=== PATIENT | female | born 1995 | race Caucasian/White ===

== ENCOUNTER 2017-02-11 20:05 | Emergency (ER) | payer OTHER ==
[~2017-02-11] VITALS: Ht 165.1 cm; Wt 68.8 kg
[~2017-02-11 20:05] MED LIST: CEPH500C PO; IBUP800T25 PO; NITR-58 PO; NO CURRENT MEDS; PHEN-538 PO
[2017-02-11 20:11] VITALS: Ht 165.1 cm; Wt 68.8 kg
--- NOTE | 2017-02-11 20:38 | ERD ---
ER Documentation Chief Complaint Chief Complaint Burning on urination x 6 days HPI The patient is a 21-year-old female who presents to the Emergency Department with complaint of dysuria. The patient reports that her symptoms initially began on Sunday, 6 days ago, at which time she developed a mild burning pain upon urination. She took [id number] Azo, and her symptoms improved. However, over the past 1-2 days, she notes that her symptoms have worsened. She reports associated symptoms of urinary frequency, urgency, and hematuria. Otherwise, Denies fevers, sweats, chills, nausea, vomiting, abdominal pain, back pain, flank pain. Denies any other complaints at this time. Last menstrual period was 2 weeks ago, and normal. She denies any new sexual contacts. Denies any vaginal bleeding or new vaginal discharge. Denies STI exposure. ROS All systems reviewed and are negative except as per history of present illness. Medications Home Meds Active Scripts Phenazopyridine Hcl* (Pyridium*) 200 Mg Tab, 200 MG PO TID Y for URINARY PAIN for 2 Days, #6 TAB Prov:EULOGIO MEYER PA-C 02/11/17 Cephalexin* (Cephalexin*) 500 Mg Capsule, 500 MG PO Q6 for 7 Days, CAP Prov:KORINA HUMMEL MD 05/15/15 Phenazopyridine Hcl* (Pyridium*) 200 Mg Tab, 200 MG PO TID Y for DYSURIA, #6 TAB Prov:MAMADOU BOYD. [employer] CONSULTANT 10/02/14 Nitrofurantoin Monohyd Macrocr* (Macrobid*) 100 Mg Capsr, 100 MG PO BID for 7 Days, CAP Prov:MAMADOU BOYD [employer] CONSULTANT 10/02/14 Ibuprofen* (Motrin*) 800 Mg Tab, 800 MG PO Q6H Y for PAIN AND OR ELEVATED TEMP, #30 TAB Prov:TAYLA LOPEZ PA-C 09/03/14 Reported Medications [No Current Meds] No Conflict Check 05/26/09 Allergies Allergies: Coded Allergies: No Known Allergy (Verified Allergy, Mild, 05/26/09) PMhx/Soc Medical and Surgical Hx: pt denies Medical Hx, pt denies Surgical Hx History of Surgery: No Anesthesia Reaction: No Hx Neurological Disorder: No Hx Respiratory Disorders: No Hx Cardiac Disorders: No Hx Psychiatric Problems: No Hx Miscellaneous Medical Probl: Yes (UTI) Hx Alcohol Use: Yes (2-3 COCKTAILS ONCE A MONTH) Hx Substance Use: No Hx Tobacco Use: No Physical Exam Vitals Vital Signs Date Time Temp Pulse Resp B/P Pulse Ox O2 Delivery O2 Flow Rate FiO2 02/11/17 20:11 99.0 72 20 109/63 98 Physical Exam GENERAL: Well-developed, well-nourished, in no acute distress. HEENT: Head is normocephalic, atraumatic. No scleral pallor or icterus. Pupils equal, round and reactive to light. Extraocular movements intact. Conjunctiva pink. Moist mucous membranes. NECK: Supple. Full range of motion. RESPIRATORY: Lungs are clear to auscultation bilaterally. Equal breath sounds. Normal expiratory effort. CARDIOVASCULAR: Regular rate and rhythm. S1 and S2 normal. GASTROINTESTINAL: Abdomen is soft, nontender, and nondistended. No guarding, no rebound tenderness. Normal bowel sounds. FLANK: No CVA tenderness, no mass or swelling. BACK: No midline tenderness. GENITOURINARY: Normal external genitalia. No abnormal discharge, no bleeding. No wounds or lesions. EXTREMITIES: No clubbing, cyanosis, or edema. Normal skin perfusion. Moving all extremities. Muscle tone is normal. No focal swelling or erythema. NEUROLOGIC: The patient is alert, awake, and oriented x 3. No focal neurologic deficits. INTEGUMENT: Skin is clean, dry and intact. No rashes, lesions or petechiae present. Normal turgor. PSYCHIATRIC: Appropriate; Cooperative. Results 24 hrs Laboratory Tests Test 02/11/17 20:30 02/11/17 20:40 Urine Color YELLOW Urine Clarity CLEAR Urine pH 6.0 Urine Specific [place] 1.011 Urine Ketones NEGATIVEmg/dL Urine Nitrite NEGATIVEmg/dL Urine Bilirubin NEGATIVEmg/dL Urine Urobilinogen 1+mg/dL Urine Leukocyte Esterase NEGATIVELeu/ul Urine Microscopic RBC 3/HPF Urine Microscopic WBC 1/HPF Urine Hemoglobin 1+mg/dL Urine Glucose NEGATIVEmg/dL Urine Total Protein NEGATIVEmg/dl Bedside Urine pH (LAB) 6.0 Bedside Urine Protein (LAB) Negative Bedside Urine Glucose (UA) Negative Bedside Urine Ketones (LAB) Negative Bedside Urine Blood 2+ Bedside Urine Nitrite (LAB) Negative Bedside Urine Leukocyte Esterase (L Negative Procedures/MDM This is a 21-year-old female presenting to the Emergency Department with dysuria , urinary frequency, urgency and hematuria. Differentials that were considered today include cystitis, pyelonephritis, interstitial cystitis, genital herpes, atrophic vaginitis, pelvic inflammatory disease, nephrolithiasis, cervicitis, urinary retention, urinary incontinence, , ectopic , urinary tract infection, vulvovaginitis, appendicitis, gastroenteritis, perinephric or renal abscess, constipation, ovarian torsion, gastritis, neoplastic disease, among other emergent medical conditions in my thought process. I have low clinical suspicion for acute or surgical abdomen as the patient is non-toxic and well appearing, with stable vital signs, and presents with no tenderness in any of the four abdominal quadrants. Negative nitrites and negative urine leukocyte esterase were noted on urinalysis. No significant WBCs to indicate urinary tract infection. Urine culture is sent. GC/chlamydia testing sent. Negative urine . Genitourinary examination with no discharge, no bleeding. Patient with no pelvic pain, and therefore I doubt cervicitis, PID, TOA. She has not had fever or any constitutional symptoms, no flank pain or CVA tenderness, and therefore I doubt pyelonephritis. After rest, the patient reports no new complaints. Discussed patient case with ED supervising physician, Dr. Woods, who recommends sending a urine culture, and following up on it, rather than treatment with antibiotics. Shared decision making held with the patient. Patient notes that she does not want any antibiotics unless testing confirms presence of an infection. She would rather wait for urine culture results, rather than be placed on empiric antibiotics. At this time, the patient will be sent home with a prescription for Pyridium as treatment for the symptoms, and strict return precautions for signs of deteriorating or worsening condition. The patient is advised to follow up with her primary care provider in 2-3 days for reevaluation and further management, or return to the ER sooner for any new or worsening symptoms. Other reasons to return to the ER sooner include abdominal pain, persistent nausea or vomiting, persistent high fevers greater than 100.4 F, flank pain, or any other signs of deteriorating condition. I shared my medical decision making and plan with the patient at length and in great detail, and the patient verbally understands and agrees with the plan for further observation and care as an outpatient. At the time of discharge all questions were answered. Departure Diagnosis: Primary Impression: Dysuria Condition: Stable Patient Instructions: Dysuria, Urine Culture Additional Instructions: Call your primary care doctor TOMORROW for an appointment during the next 2-3 days.See the doctor sooner or return here if your condition worsens before your appointment time. EULOGIO MEYER PA-C Feb 11, 2017 20:38
[2017-02-11 20:41] LABS: URINE BLOOD (Dip) POC 2+ (NEGATIVE)
[2017-02-11 21:15] LABS: ADD UMIC YES; UR ASCORBIC ACID NEGATIVE (NEGATIVE); UR BILIRUBIN (Dip) NEGATIVE (NEGATIVE); UR BLOOD (Dip) 1+ mg/dL (NEGATIVE); UR CLARITY CLEAR (CLEAR); UR COLOR YELLOW (YELLOW); UR GLUCOSE (Dip) NEGATIVE (NEGATIVE); UR KETONES (Dip) NEGATIVE (NEGATIVE); UR LEUKOCYTE ESTERASE (Dip) NEGATIVE Leu/ul (NEGATIVE); UR NITRITE (Dip) NEGATIVE (NEGATIVE); UR RBC 3 /HPF (0-5); UR SPECIFIC GRAVITY (Dip) 1.011 (1.003-1.030); UR TOTAL PROTEIN (Dip) NEGATIVE (NEGATIVE); UR UROBILINOGEN (Dip) 1+ mg/dL (NEGATIVE)
[2017-02-11] MEDS ORDERED: PHEN-538 PO (21:29)
== END 2017-02-11 21:33 | disposition home or self-care (01) ==
LOC: FTE 20:05
DX: R30.0 Dysuria (principal)
CPT/HCPCS: 81001; 81003; 87086; 87591; 99284